=== PATIENT | female | born 1965 | race Caucasian/White ===

== ENCOUNTER 2019-05-14 01:39 | Emergency (ER) | payer OTHER ==
[~2019-05-14] VITALS: Ht 66 cm
--- NOTE | ~2019-05-14 | EKG ---
[place], [place] ELECTROCARDIOGRAM REPORT NAME: JENNIFER ALEJANDRA UNIT #: [id number] ROOM: DOCTOR: EPIPHANY DRAFT REPORT BIRTHDATE: [birth year] [facility] Test Date: 2019-05-14 Test Time: 02:17:54 Pat Name: JENNIFER ALEJANDRA Department: ED Room: Gender: [employer] Finisher: Catherine Weeks : 1965 Requested By: JENNIFER BRUNO Order Number: [id number] Reading MD: Bertram Mahan MD Measurements Intervals Roebling Rate: 181 P: 0 WY: 167 QRS: -34 QRSD: 95 T: 77 QT: 302 QTc: 525 Interpretive Statements Supraventricular tachycardia Ventricular premature complex Left axis deviation Repolarization changes likely rate related Electronically Signed On 05-14-2019 12:54:04 PDT by Bertram Mahan MD CM:EKGRPT:ELECTROCARDIOGRAM REPORT [id number] JENNIFER CARLTON DRAFT REPORT JENNIFER BRUNO DO
[~2019-05-14 01:39] MED LIST: IBU-8800 MG PO; KENALOG0.1% TP; MEDROL DOSEPAK4 MG PO; ULTRAM50 MG PO; VISTARIL50 MG PO
--- NOTE | 2019-05-14 02:02 | NUR ---
Pt intubated by this RT with DR. Black present. x1 attempt. BBS noted as well as colormetric CO2 change with condensation present in ETT. Tube secured at 25cm at the lip. Ventilator initiated per Dr. Ovalle's orders. Pt's SPO2 100%. ETCO2 35.
--- NOTE | 2019-05-14 02:20 | NUR ---
ETT withdrawn 1cm per DR. Ovalle's orders. Proper placement identified via X-Ray by Dr. Ovalle.
[2019-05-14 02:24] LABS: HEMATOCRIT 41.9 % (37.0-47.0); HEMOGLOBIN 14.3 g/dl (12.0-16.0); MEAN CORPUSCULAR HGB 33.1 pg (27.0-31.0); MEAN CORPUSCULAR HGB CONC 34.1 g/dl (33.0-37.0); MEAN PLATELET VOLUME 10.7 fl (9.6-12.3); PLATELET COUNT AUTOMATED 289 10*3/uL (130-400); RED BLOOD COUNT 4.32 10*6/uL (4.10-5.10); RED CELL DISTRI WIDTH 12.1 % (0-14.5); WHITE BLOOD COUNT 15.1 10*3/uL (4.8-10.8)
[2019-05-14 02:37] LABS: ACT PARTIAL THROMBO TIME 20.8 SECONDS (20.0-32.1); INTERNATIONAL NORM RATIO 0.9 (2.0-3.5)
[2019-05-14 02:41] LABS: ALKALINE PHOSPHATASE 75 U/L (45-117); BUN 16 mg/dl (7-24); CHLORIDE 106 mmol/L (98-107); CREATININE 1.02 mg/dL (0.55-1.02); LIPASE 325 U/L (73-393); POTASSIUM 3.4 mmol/L (3.5-5.1); SGOT/AST 46 IU/L (3-35); SGPT/ALT 68 U/L (12-78); SODIUM 140 mmol/L (136-145); TOTAL PROTEIN 8.1 gm/dL (6.4-8.2)
[2019-05-14 02:44] LABS: BETA-HCG, QUANT < 1.0 mIU/mL (1-3); TROPONIN I < 0.015 ng/ml (<0.045)
[2019-05-14 02:48] LABS: BASOPHILS 1 % (0-1); PLATELET SUFFICIENCY NORMAL (NORMAL); TOTAL CELLS COUNTED 100 #CELLS
== END 2019-05-14 03:29 | disposition short-term general hospital (02) ==
LOC: ED 01:39
PROVIDERS: Student in an Organized Health Care Education/Training Program
DX: I61.9 Nontraumatic intracerebral hemorrhage, unspecified (principal); Z88.6 Allergy status to analgesic agent; Z88.5 Allergy status to narcotic agent; Z90.49 Acquired absence of other specified parts of digestive tract